=== PATIENT | female | born 1975 | race Two or more races ===

== ENCOUNTER 2018-06-05 10:58 | Emergency (ER) | payer OTHER ==
[2018-06-05] MEDS ORDERED: oxyCODONE/Acetamin 5/325 MG* TAB PO ONE (11:31)
[2018-06-05] MEDS ORDERED: Ibuprofen TAB* 800 MG PO ONE (11:31)
--- NOTE | 2018-06-05 12:06 | RAD ---
INDICATION: Left elbow pain COMPARISON: None TECHNIQUE: 2 views the elbow were obtained. FINDINGS: The examination is very limited due to positioning. The patient has a known mid shaft humeral fracture limiting positioning. No gross fracture is seen. IMPRESSION: LIMITED IMAGING OF THE ELBOW DEMONSTRATE NO ACUTE FINDINGS.
--- NOTE | 2018-06-05 12:07 | RAD ---
INDICATION: Left humeral injury COMPARISON: None TECHNIQUE: AP and lateral views were obtained. FINDINGS: There is a transverse, mid shaft humeral fracture with mild angular deformity. No other fractures are evident.. IMPRESSION: MILDLY ANGULATED MIDSHAFT HUMERAL FRACTURE.
--- NOTE | 2018-06-05 12:08 | RAD ---
INDICATION: Left elbow pain COMPARISON: None TECHNIQUE: AP and Y were obtained. FINDINGS: There is no acute fracture about the a.c. or glenohumeral joint. The scapula appears intact. There is a mid shaft humeral fracture described elsewhere. IMPRESSION: MIDSHAFT HUMERAL FRACTURE
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
[2018-06-05] MEDS ORDERED: oxyCODONE TAB* 5 MG TAB PO ONE (12:47)
[2018-06-05 14:10] VITALS: BP 121/65
== END 2018-06-05 14:09 | disposition home or self-care (01) ==
LOC: ED 10:58
DX: S42.302A Unspecified fracture of shaft of humerus, left arm, initial encounter for closed fracture (principal); V18.4XXA Pedal cycle driver injured in noncollision transport accident in traffic accident, initial encounter; Y93.55 Activity, bike riding; Y92.9 Unspecified place or not applicable; E07.9 Disorder of thyroid, unspecified; Z79.899 Other long term (current) drug therapy
CPT/HCPCS: 99282; A9270-GY